=== PATIENT | male | born 1990 | race Caucasian/White ===

== ENCOUNTER 2024-04-21 13:16 | Outpatient (CLI) | payer BC, SELFPAY | END 2024-04-21 13:17 | disposition home or self-care (01) | PROVIDERS: PCP Internal Medicine; Visit Provider Internal Medicine | DX: Z13.6 Encounter for screening for cardiovascular disorders (principal); Z13.9 Encounter for screening, unspecified | CPT/HCPCS: 80053; 80061 ==

== ENCOUNTER 2024-05-23 08:41 | Emergency (ER) | payer BC, SELFPAY ==
--- OUTSIDE RECORDS SUMMARY | 2024-05-23 08:43 | XMS_ITS | Clinical Summary ---
Author Organization [facility] Address [place], [place] [address] Care Team Providers Care Slab Inspector Name Role Phone Pcp, No Primary Care Provider Unavailabl e Allergies No known active allergies Medications omeprazole (PRILOSEC) 20 mg Delayed-Release capsuleIndicati ons:Epigastric pain Take 1 capsule by mouth once daily before a meal. 30 capsule 1 07/13/2015 Active Family History Medical History Relation Name Comments Unknown Father Other Mother thyroid removed Relation Name Status Comments Father Mother Social History Tobacco Use Types Packs/Day Years Used Date Smoking Tobacco: Every Day Cigarettes 1 15 Smokeless Tobacco: Never Tobacco Cessation:Ready to Q uit: No; Counseling Given: Yes Alcohol Use Standard Drinks/Week Comments Yes 0 (1 standard drink = 0.6 oz pur e alcohol) 1 drink every 3 months Sex and Gender Information Value Date Recorded Sex Assigned at Not on file Legal Sex Male 4:06 PM CDT Gender Identity Not on file Sexual Orientation Not on file 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 Not on file Not on file Not on file Obstetrics History Last Filed Vital Signs Vital Sign Reading Time Taken Comments Blood Pressure 132/70 07/13/2015 4:35 PM CDT Pulse 93 07/13/2015 4:35 PM CDT Temperature 36.7 C (98 F) 07/13/2015 4:35 PM CDT Respiratory Rate - - Oxygen Saturation 99% 07/13/2015 4:35 PM CDT Inhaled Oxygen Concentration - - Weight 84.8 kg (187 lb) 07/13/2015 4:35 PM CDT Height 174 cm (5' 8.5) 07/13/2015 4:35 PM CDT Body Mass Index 28.02 07/13/2015 4:35 PM CDT Plan of Treatment Health Maintenance Due Date Last Done Comments Tdap 2001 Depression screening for age 12+ 2002 HIV for age 15-65 2005 Hepatitis C screening for ag e 18-79 2008 Tetanus booster 2010 BMI (ht and wt on same day) for age 18+ 07/12/2016 07/13/2015 COVID-19 vaccine series (2023- season) 2023 Influenza for age 9-49 12/13/2023 Pneumococcal series for age 6-49 Aged Out No longer eligible based on patient's age to complete this topic Insurance [facility] Care Teams Slab Inspector Relationship Specialty Start Date End Date Pcp, No . PCP - General 04/20/24
[2024-05-23 08:44] VITALS: BP 159/92; PULSE 97; RESP 18; TEMP 36.1; O2SAT 97; BMI 35.9
--- NOTE | 2024-05-23 09:18 | CRLHL7_ITS ---
For Patients: As a result of the Century Cures Act, medical imaging exams and procedure reports are released immediately into your electronic medical record. You may view this report before your referring provider. If you have questions, please contact your health care provider. Indication: Cough, ongoing for a week. Technique: Two view(s) of the chest. Comparison: None available. Findings: Normal cardiomediastinal silhouette and pulmonary vasculature. Lungs are well inflated. Patchy airspace opacities in the right lower lobe without dense consolidation. Left lung is clear. No pleural effusion. No pneumothorax. No acute osseous abnormality identified. Impression: Right lower lobe airspace opacities concerning for pneumonia. Dictated by Margi Walton MD @ 05/23/2024 10:14:16 AM (Electronically Signed)
[2024-05-23 09:46] LABS: PCR FLU A Negative PCR FLU A (Negative); PCR FLU B Negative PCR FLU B (Negative); PCR RSV Negative PCR RSV (Negative); SARS PCR* Negative SARS-CoV-2 (Negative)
--- NOTE | 2024-05-23 09:48 | ED_ITS ---
HPI - General Adult General Chief complaint: Cough Stated complaint: cough/body aches Time Seen by Provider: 05/23/24 09:29 History of Present Illness HPI narrative: This 33-year-old male comes in reporting upper respiratory symptoms for the past week. This includes cough, subjective fever, congestion, and generalized body aches and pains. He states that he has been using [id number] medicines without much relief. He wonders if he might have pneumonia. Related Data Previous Rx's ?Medication ?Instructions ?Recorded lorazepam 1 mg tablet (Ativan) 1 mg PO BID PRN agitation #30 tabs 04/19/24 lorazepam 0.5 mg tablet (Ativan) 0.5 mg PO BID PRN anxiety #20 tabs 05/17/24 sertraline 50 mg tablet (Zoloft) 50 mg PO QDAY #90 tabs 05/17/24 doxycycline hyclate 100 mg capsule 100 mg PO BID 10 days #20 caps 05/23/24 Allergies Allergy/AdvReac Type Severity Reaction Status Date / Time No Known Drug Allergies Allergy Verified 05/23/24 08:52 Review of Systems Status of ROS: Reports: 10 or more systems reviewed and unremarkable except as noted in History and below Narrative: Constitutional: No weight gain or loss. Eyes: No discharge. No vision changes. HENT: No congestion, no sore throat, no ear pain. Cardiovascular: No chest pain, no palpitations. Respiratory: No shortness of breath, no wheezes. He reports a cough. Gastrointestinal: No abdominal pain, no vomiting, no diarrhea. Genitourinary: No dysuria, no hematuria. Musculoskeletal: Normal range of motion. Skin: No rashes, no pruritis. Neurological: No dizziness, weakness, sensory change, speech change. Endo/Heme/Allergies: No bruising or bleeding. No polydipsia. Pysch: no suicidality, no insomnia. All other systems reviewed and are negative. [facility] Medical History (Updated 05/23/24 @ 10:31 by Cj Arellano MD) Hyperlipidemia ?E78.5 - Hyperlipidemia, unspecified (ICD-10) Anxiety ?F41.9 - Anxiety disorder, unspecified (ICD-10) Cannabinoid hyperemesis syndrome (~2013) ?R11.2 - Nausea with vomiting, unspecified (ICD-10) ?F12.90 - Cannabis use, unspecified, uncomplicated (ICD-10) Social History (Updated 04/21/24 @ 14:09 by Ayanna Angel ~ [facility]) What is your current living situation?: I presently have a place to live Problems where you live: mold and water leaks In the past 12 months, utilities in danger of being shut off: no In past 12 months, lack of transportation kept you from medical appts, meetings, work, or getting things needed for daily living: no In the past 12 mos, have been you worried that your food would run out before you had money to buy more?: never true In the past 12 mos, the food you bought just didn't last and you didn't have money to buy more?: never true How often does anyone, including family, friends and others, physically hurt you : never How often does anyone, including family, friends and others, insult or talk down to you: sometimes How often does anyone, including family, friends and others, threaten you with harm: never How often does anyone, including family, friends and others, scream or curse at you: sometimes Health Related Social Needs: Inadequate housing (Z59.1) and Other personal risk factors, not elsewhere classified (Z91.89) Exam Narrative: Exam Narrative: Constitutional: Well-developed, well-nourished, no acute distress. HEENT: Normocephalic, atraumatic. Neck: Normal range of motion. Nontender. Supple. Heart: Regular. No murmurs. Normal rate. Intact distal pulses. Lungs: Clear to auscultation. No chest discomfort. No wheezes, rhonchi, or rales. Abdomen: Normal bowel sounds. Nontender. No rebound tenderness. Genitalia: Deferred. Back: No midline tenderness. Normal range of motion. Extremities: Normal range of motion. No injury. Skin: Intact. No rash. Warm. No erythema or pallor. Neurologic: No altered sensation. No weakness. Alert and oriented. Psychiatric: No suicidality. No insomnia. Nursing notes and vitals signs are reviewed. Const: Vital Signs, click to edit/add: Vital Signs - 24 hr 05/23/24 08:44 Temperature 97 F L Pulse Rate [Right Pulse Oximeter] 97 Respiratory Rate 18 Blood Pressure [Ri ght Upper Arm] 159/92 H Pulse Oximetry 97 Oxygen Delivery Me thod Room Air Course Vital Signs Vital signs: Initial Vital Signs Temperature 97 F L 05/23/24 08:44 Temperature Source Temporal Artery Scan 05/23/24 08:44 Pulse Rate 97 05/23/24 08:44 Pulse Rhythm Regular 05/23/24 08:44 Pulse Strength 3+ Normal 05/23/24 08:44 Respiratory Rate 18 05/23/24 08:44 Blood Pressure 159/92 H 05/23/24 08:44 Blood Pressure Mean 114 H 05/23/24 08:44 Blood Pressure Position Sitting 05/23/24 08:44 Pulse Oximetry 97 05/23/24 08:44 Oxygen Delivery Method Room Air 05/23/24 08:44 Vital Signs Temperature 97 F L 05/23/24 08:44 Pulse Rate 97 05/23/24 08:44 Respiratory Rate 18 05/23/24 08:44 Blood Pressure 159/92 H 05/23/24 08:44 Pulse Oximetry 97 05/23/24 08:44 Oxygen Delivery Method Room Air 05/23/24 08:44 Temperature 97 F L 05/23/24 08:44 Pulse Rate 97 05/23/24 08:44 Respiratory Rate 18 05/23/24 08:44 Blood Pressure 159/92 H 05/23/24 08:44 Pulse Oximetry 97 05/23/24 08:44 Oxygen Delivery Method Room Air 05/23/24 08:44 Medications Administered Medications: Discontinued Medications Generic Name Dose Route Start Last Admin Trade Name Freq PRN Reason Stop Dose Admin Dexamethasone 10 mg 05/23/24 09:47 05/23/24 09:55 Dexamethasone 10 Mg/Ml Inj PO 05/23/24 09:48 10 mg ONCE ONE Administration Medical Decision Making [facility] Narrative Medical decision making narrative: This patient comes in with respiratory infection symptoms as described above. Nasal pharyngeal swab returns negative for viruses tested. His chest x-ray a ever shows findings concerning for a right lower lobe pneumonia. He is okay to be discharged home. I did provide prescription for Doxycycline. Lab Data Labs: Lab Results 05/23/24 Range/Units 08:55 SARS-CoV-2 (PCR) Negative SARS-CoV-2 (Negative) Influenza Type A (PCR) Negative PCR FLU A (Negative) Influenza Type B (PCR) Negative PCR FLU B (Negative) RSV (PCR) Negative PCR RSV (Negative) Imaging Data Chest x-ray: Radiologist's impression: Right lower lobe airspace opacities concerning for pneumonia. Discharge Plan Discharge Clinical Impression: Pneumonia Patient Disposition: Home, Self-Care Condition: Unchanged Additional Instructions: Take medication as prescribed. Use [id number] medicines also as needed and directed. Follow up with MD return if worsening. Prescriptions: New doxycycline hyclate 100 mg capsule 100 mg PO BID 10 Days Qty: 20 0RF No Action lorazepam [Ativan] 1 mg tablet 1 mg PO BID PRN (Reason: agitation) Qty: 30 0RF sertraline [Zoloft] 50 mg tablet 50 mg PO QDAY Qty: 90 3RF lorazepam [Ativan] 0.5 mg tablet 0.5 mg PO BID PRN (Reason: anxiety) Qty: 20 0RF Follow Up/Referrals: Liborio Strange MD [Primary Care Provider] - Stand Alone Forms: Drip In Info Instructions
[2024-05-23] MEDS: dexAMETHasone 10 MG/ML inj PO (09:55)
[2024-05-23 10:41] VITALS: BP 159/92; PULSE 97; RESP 18; TEMP 36.1
== END 2024-05-23 10:41 | disposition home or self-care (01) ==
PROVIDERS: Emergency Provider Emergency Medicine Emergency Medical Services; PCP Internal Medicine
DX: J18.9 Pneumonia, unspecified organism (principal)
CPT/HCPCS: 71046; 87631; 99283; 99284; J1100